=== PATIENT | female | born 1950 | race Two or more races ===

== ENCOUNTER 2020-01-19 17:45 | Inpatient (IN) | payer MEDICARE, BC ==
[~2020-01-19] VITALS: Ht 167.6 cm; Wt 108.9 kg
[2020-01-19] MEDS ORDERED: IV NORMAL SALINE 500 ML BAG IV ONE (18:00)
[2020-01-19] MEDS ORDERED: ONDANSETRON 4 MG/2 ML VIAL IV ONE (18:00)
[2020-01-19] MEDS ORDERED: ONDANSETRON 4 MG/2 ML VIAL ONE (18:13)
[2020-01-19 18:15] LABS: BASOPHILS # (AUTO) 0.1 K/uL (0.0-8.0); BASOPHILS % (AUTO) 0.7 % (0.0-2.0); EOSINOPHILS # (AUTO) 0.1 K/uL (0.0-0.7); EOSINOPHILS % (AUTO) 0.5 % (0.0-7.0); HEMATOCRIT 34.1 % (31.2-41.9); HEMOGLOBIN 11.2 g/dL (10.9-14.3); LYMPHOCYTES # (AUTO) 1.3 K/uL (20.0-40.0); LYMPHOCYTES % (AUTO) 11.6 % (20.5-51.5); MEAN CORPUSCULAR HEMOGLOBIN 33.4 uug (24.7-32.8); MEAN CORPUSCULAR HGB CONC 33 g/dL (32.3-35.6); MEAN CORPUSCULAR VOLUME 101.6 fL (75.5-95.3); MONOCYTES # (AUTO) 0.5 K/uL (2.0-10.0); MONOCYTES % (AUTO) 4.4 % (0.0-11.0); NEUTROPHILS # (AUTO) 9.5 K/uL (1.8-8.9); NEUTROPHILS % (AUTO) 82.8 % (38.5-71.5); PLATELET COUNT (AUTO) 282 K/uL (179-408); RED BLOOD CELL COUNT(AUTO) 3.35 MIL/uL (3.63-4.92); WHITE BLOOD COUNT (AUTO) 11.5 K/uL (3.8-11.8)
--- NOTE | 2020-01-19 18:30 | NUR ---
per md order, d/franko the pt from [facility] to see how the pt does.
[2020-01-19 18:38] LABS: BILIRUBIN,TOTAL 0.2 mg/dL (0.2-1.0); CREATININE 4.9 mg/dL (0.6-1.3); POTASSIUM 4.9 mmol/L (3.5-5.1); TOTAL PROTEIN, SERUM 7.1 g/dL (6.4-8.2)
--- NOTE | 2020-01-19 18:48 | NUR ---
pt off the O2, room sat 96%, notified.
--- NOTE | 2020-01-19 19:05 | NUR ---
Patient transported to CT in stable condition.
--- NOTE | 2020-01-19 19:16 | NUR ---
Patient back in room from CT
--- NOTE | 2020-01-19 19:43 | NUR ---
PATIENT UNABLE TO RECALL HOME MEDICATION AT THIS TIME. PATIENT UNABLE TO CONTACT FAMILY OR HER PHARMACY TO GET HOME MEDICATION LIST.
[2020-01-19 19:47] LABS: *BILIRUBIN,URIN NEGATIVE (NEGATIVE); *BLOOD, URINE 1+ (NEGATIVE); *CLARITY,URINE CLEAR (CLEAR); *COLOR,URINE YELLOW (YELLOW); *KETONES,URINE NEGATIVE (NEGATIVE); *UROBILINOGEN,URINE 0.2 E.U./dl (NORMAL); LEUKOCYTE ESTERASE ,URINE NEGATIVE (NEGATIVE); NITRITE, URINE NEGATIVE (NEGATIVE); PH,URINE 5.5 (5.0-8.0); UGLUCOSE TRACE (NEGATIVE)
[2020-01-19 19:49] LABS: BACTERIA,URINE NONE SEEN /HPF (NONE SEEN); SQUAMOUS EPITHELIAL CELL,UR FEW /HPF (NONE SEEN); WBC,URINE 0-3 /HPF (0-3)
--- NOTE | 2020-01-19 20:20 | NUR ---
[facility], Dr. Gunnar torod, awaiting call back.
[2020-01-19] MEDS ORDERED: NITROGLYCERIN OINT 1 GM PACKET TP ONE ×2 (20:30→20:36)
[2020-01-19] MEDS ORDERED: ASPIRIN 81 MG TAB.CHEW PO ONE (20:30)
[2020-01-19] MEDS ORDERED: ASPIRIN 81 MG TAB.CHEW ONE (20:36)
--- NOTE | 2020-01-19 20:40 | NUR ---
Spoke with Claire from Nuclear Medicine and was informed that VQ scan cannot be done at this time. [facility] made aware. No new orders received
--- NOTE | 2020-01-19 21:07 | NUR ---
In patient unit unable to take patient at this time.
[2020-01-19 21:45] VITALS: BP 148/81
--- NOTE | 2020-01-19 21:46 | NUR ---
Patient transported to 2nd floor TELE.
[2020-01-19] MEDS ORDERED: MORPHINE SULFATE 2 MG/1 ML DISP.SYRIN IV PRN (22:00)
[2020-01-19] MEDS ORDERED: ACETAMINOPHEN 325 MG TABLET PO PRN (22:00)
[2020-01-19] MEDS ORDERED: IV 1/2NS 1000 ML 1,000 ML IV PRN (22:00)
[2020-01-19] MEDS ORDERED: ONDANSETRON 4 MG/2 ML VIAL IV PRN (22:00)
--- NOTE | 2020-01-19 23:04 | NUR ---
complaint of chest pain; morphine was supposed to be given but pt refused because of fear of N/V.
--- NOTE | 2020-01-19 23:30 | NUR ---
IV pulled out; will reinsert by MATTRESS MAKER because pt is a hard stick.
[2020-01-20] VITALS: BP 145/83
[2020-01-20] MEDS ORDERED: SODIUM BICARBONATE 8.4% 50 MEQ/50 ML DISP.SYRIN IV ONE (00:29)
[2020-01-20] MEDS ORDERED: EPINEPHRINE 1:10,000 1 MG/10 ML DISP.SYRIN MC ONE (00:29)
--- NOTE | 2020-01-20 03:00 | NUR ---
2345 Pt became unresponsive; seen by RN Nicholas Nguyen who is about to start IV; negar blue was called and CPR started; ER MD and RT responded and code blue continued; 0020 Pt 's son notified of ongoing code blue; [address] Dr Head pronounced pt 0040 Dr Torres, absorption plant operator helper for Dr Steward is made aware of the pt's demise; 0045 Pt's son Kashif Sotomayor ([phone]) informed of the Demise; 0113 [facility] case # [id number] Sider Mechanic's office is contacted and the office declined for further management. post mortem care done; patient's belongings on property bag secured and will be given to Nursing office.
--- NOTE | 2020-01-20 04:49 | NUR ---
Pt's son spoke to Wire Stitcher Operator Allison regarding request for autopsy; pt transferred to [facility] [place].
--- NOTE | 2020-01-20 05:00 | NUR ---
Pt sent to [facility]; phone with ID and cards sent to [facility] for safekeeping
[2020-01-20] MEDS ORDERED: PANTOPRAZOLE SODIUM 40 MG TABLET.DR PO SCH (07:00)
[2020-01-20] MEDS ORDERED: ASPIRIN EC 81 MG TABLET.DR PO SCH (09:00)
== END 2020-01-20 00:30 | disposition expired ==
LOC: ER 17:49 → TELE 21:30
PROVIDERS: ADMIT Internal Medicine; ATTEND Internal Medicine
PROC: 0BH18EZ Insertion of Endotracheal Airway into Trachea, Via Natural or Artificial Opening Endoscopic (ICD-10-PCS; principal; 2020-01-20)
PROC: 5A12012 Performance of Cardiac Output, Single, Manual (ICD-10-PCS; 2020-01-20)
DX: I21.4 Non-ST elevation (NSTEMI) myocardial infarction (principal); N17.0 Acute kidney failure with tubular necrosis; G92 Toxic encephalopathy; I26.99 Other pulmonary embolism without acute cor pulmonale; D68.69 Other thrombophilia; Z85.841 Personal history of malignant neoplasm of brain; Z90.49 Acquired absence of other specified parts of digestive tract; Z96.642 Presence of left artificial hip joint; E66.01 Morbid (severe) obesity due to excess calories; E11.22 Type 2 diabetes mellitus with diabetic chronic kidney disease; N18.9 Chronic kidney disease, unspecified; E11.51 Type 2 diabetes mellitus with diabetic peripheral angiopathy without gangrene; I12.9 Hypertensive chronic kidney disease with stage 1 through stage 4 chronic kidney disease, or unspecified chronic kidney disease; Z68.38 Body mass index [BMI] 38.0-38.9, adult; R40.2412 Glasgow coma scale score 13-15, at arrival to emergency department
CPT/HCPCS: 36415; 70030-TC; 70450; 71045; 83605; 83615; 85025; 85730; 86140; 87040; 87400; 93005; A4663; C1758; G0378; J0171; J2270; J2405; J3490; J7030